=== PATIENT | female | born 1945 | race Caucasian/White ===

== ENCOUNTER 2016-03-06 10:11 | Emergency (ER) | payer MEDICARE, OTHER ==
--- NOTE | 2016-03-06 11:30 | Emergency Department Record ---
History of Present Illness - General Chief Complaint: Cough Stated Complaint: COUGH/SOB/LIGHT HEADED Time Seen by Provider: 03/06/16 11:29 Source: Patient Mode of Arrival: Ambulatory Limitations: No limitations - History of Present Illness Initial Comments: The patient is here due to a one month hx of cough and congestion with intermittent SOB. She denies any CP but has had some chest congestion off and on with the SOB. The patient was started on AMox. by her PCP and then had it changed to Levaquin. She just recently finished a 10 day course of Levaquin 750 mg daily. Due to not feeling better she decided to come to the ER. The patient was in the ER at [facility] 4 days ago and had a chest CT that she reports just showed fluid on the lungs but no blood clot. The patient does have a hx of CAD and has had multiple stents placed in the past but denies any problems with her heart. Complaint: Cough Onset/Timin -: Month(s) - Related Data Home Medications Medication Instructions Recorded Confirmed Last Taken Aspirin [Adult Low Dose Aspirin EC] 81 mg PO DAILY 03/06/16 03/06/16 03/06/16 Clobetasol Propionate/Emoll 1 apply TOP BID 03/06/16 03/06/16 03/06/16 [Clobetasol Emollient 0.05% Crm] Hydrochlorothiazide [Hctz 25Mg] 25 mg PO DAILY 03/06/16 03/06/16 03/06/16 Levothyroxine Sodium [Synthroid] 112 mcg PO DAILY 03/06/16 03/06/16 03/06/16 Nitroglycerin [Nitrostat] 0.4 mg SL ASDIR 03/06/16 03/06/16 Unknown Pantoprazole Sodium [Protonix] 40 mg PO DAILY 03/06/16 03/06/16 03/06/16 Zolpidem Tartrate [Ambien] 5 mg PO QHS PRN 03/06/16 03/06/16 Unknown Previous Rx's Medication Instructions Recorded Doxycycline Monohydrate [Mondoxyne 100 mg PO BID #20 capsule 03/06/16 Nl] Prednisone [Prednisone 20Mg] 40 mg PO DAILY #10 tab 03/06/16 Allergies Allergy/AdvReac Type Severity Reaction Status Date / Time cefaclor [From [facility]] Allergy HIVES Verified 03/06/16 11:04 Travel Screening - Travel/Exposure Within Last 30 Days Have you traveled within the last 30 days?: No - Travel/Exposure Within Last Year Have you traveled outside the [place] in the last year?: No - Additonal Travel Details Have you been exposed to anyone with a communicable illness?: No - Travel Symptoms Symptom Screening: None Review of Systems Constitutional: Reports: Malaise. Denies: Chills, Fever Eyes: Denies: Eye discharge ENT: Reports: Congestion Respiratory: Reports: Cough, Dyspnea Cardiovascular: Reports: Dyspnea on exertion. Denies: Arrhythmia, Chest pain Endocrine: Reports: Fatigue Gastrointestinal: Denies: Diarrhea, Vomiting Genitourinary: Denies: Dysuria Musculoskeletal: Denies: Back pain Skin: Denies: Bruising Past Medical History - SOCIAL HISTORY Smoking Status: Former smoker Alcohol Use: Occassional Drug Use: None - RESPIRATORY Hx Respiratory Disorders: No - CARDIOVASCULAR Hx Cardio Disorders: Yes Hx Hypertension: Yes - NEURO Hx Neuro Disorders: No - GI Hx GI Disorders: Yes Hx Reflux: Yes - Hx Genitourinary Disorders: No - ENDOCRINE Hx Endocrine Disorders: Yes Hx Thyroid Disease: Yes - MUSCULOSKELETAL Hx Musculoskeletal Disorders: Yes Hx Arthritis: Yes - PSYCH Hx Psych Problems: No - HEMATOLOGY/ONCOLOGY Hx Hematology/Oncology Disorders: No Family Medical History Any Significant Family History?: Yes Hx Cancer: Brother/Sister Physical Exam - General General Appearance: Alert, Oriented x3, Cooperative, No acute distress - Head Head exam: Atraumatic, Normocephalic, Normal inspection - Eye Eye exam: Normal appearance, PERRL - ENT Throat exam: Normal inspection. negative: Tonsillar erythema, Tonsillar exudate - Neck Neck exam: Normal inspection, Full ROM. negative: Lymphadenopathy, Meningismus , Tenderness - Respiratory Respiratory exam: Rales (about 1/2 up bilaterally.), Rhonchi. negative: Normal lung sounds bilaterally, Decreased breath sounds - Cardiovascular Cardiovascular Exam: Regular rate, Normal rhythm, Normal heart sounds - GI/Abdominal GI/Abdominal exam: Soft, Normal bowel sounds. negative: Tenderness - Extremities Extremities exam: Normal inspection, Full ROM, Normal capillary refill. negative: Tenderness - Back Back exam: Reports: Normal inspection - Neurological Neurological exam: Alert, Normal gait. negative: Abnormal gait, Motor sensory deficit Course Vital Signs 03/06/16 11:10 Temperature 99.6 F Pulse Rate 77 Respiratory 20 Rate Blood Pressure 127/67 Pulse Ox 93 L - Reevaluation(s) Reevaluation #1: The patient denies any new symptoms. I did discuss the lab and xray results with her and the need for a chest CT. Since the patient had one 4 days ago she is refusing another CT. She understands that we cannot be held liable for NOT doing the CT due to the fact she is refusing it. I explained to her that by NOT doing it we could be missing a PE, which could lead to a stroke, disability, NH and . The patient understands and accepts the risks. She states the CT done 4 days ago was to look for a clot and she was told there was none. Since we are unable to access that test I do feel we need to re-order the test but she again is refusing. She is instructed to take Prednisone and see her Pulmonary doctor JAZMYNE. 03/06/16 13:48 Medical Decision Making - Data Complexity MDM Data: Labs Ordered and/or Reviewed, X-Ray Ordered and/or Reviewed, EKG Ordered and/or Reviewed - Lab Data Result diagrams: 03/06/16 11:45 03/06/16 11:45 - EKG Data -: EKG Interpreted by Me EKG: No Acute Changes, Normal EKG - Radiology Data Radiology results: Report reviewed (CXR; Increased interstitial markings.) Disposition Disposition: Discharge Disposition: Against Medical Advice Condition: (1) Good Instructions: Dyspnea (ED) Additional Instructions: Please continue your regular medicines and start the Doxy and the Prednisone. Please see your lung specialist and your PCP early next week. Return to the ER for any CP, increased shortness of breath or fever. Prescriptions: Doxycycline Monohydrate [Mondoxyne Nl] 100 mg PO BID #20 capsule Prednisone [Prednisone 20Mg] 40 mg PO DAILY #10 tab Forms: Patient Portal Access Time of Disposition: 13:53
[2016-03-06 11:53] LABS: BASO % 0.6 % (0-6); EOS % 3.3 % (0-6); HEMATOCRIT 43.9 % (35.0-47.0); HEMOGLOBIN 14.7 gm/dl (11.6-16.0); MEAN CELL VOLUME 85.7 fl (81-97); MEAN CORPUSCULAR HEMOGLOBIN 28.7 pg (27-33); MEAN CORPUSCULAR HGB CONC 33.5 g/dl (32-36); MEAN PLATELET VOLUME 8.7 fl (7.4-10.4); MONO % 9.1 % (0-9); PLATELET COUNT 324 K/uL (130-400); RED BLOOD COUNT 5.12 M/uL (3.80-5.40); RED CELL DISTRIBUTION WIDTH 13.7 % (11.5-14.5); WHITE BLOOD COUNT W/O DIFF 10.4 K/uL (4.2-12.2)
[2016-03-06] MEDS: IPRATROPIUM/ALBUTEROL (0.5MG/3MG) NEB INH ONE (11:59)
[2016-03-06 12:05] LABS: ALB/GLOB RATIO 1.4 (1.1-1.8); ALBUMIN 4.1 gm/dL (3.5-5.0); ALKALINE PHOSPHATASE 80 U/L (38-126); ALT/SGPT 32 U/L (9-52); ANION GAP 10.6 (7-16); AST/SGOT 28 U/L (14-36); BILIRUBIN,TOTAL 0.39 mg/dL (0.2-1.3); BLOOD UREA NITROGEN 11 mg/dL (7-17); CARBON DIOXIDE 28.4 mmol/L (22-30); CREATINE PHOSPHOKINASE 89 U/L (30-135); CREATININE 0.7 mg/dL (0.52-1.04); EST GLOMERULAR FILTRATION RATE > 60 ml/min; GLUCOSE,RANDOM 103 mg/dL (70-110)
[2016-03-06 12:07] LABS: INR 0.92; PARTIAL THROMBOPLASTIN TIME 26.8 SECONDS (24.5-39.1); PROTHROMBIN TIME (PATIENT) 10.4 SECONDS (9.5-12.1)
[2016-03-06 12:17] LABS: CKMB 1.1 ug/L (0-6)
[2016-03-06 12:20] LABS: TROPONIN I < 0.012 ng/mL (0.00-0.034)
--- NOTE | 2016-03-11 08:54 | RADIOLOGY REPORT ---
EXAM: CHEST, TWO VIEWS HISTORY: COUGH. TECHNIQUE: Upright PA and lateral views of the chest were obtained. Comparison: None. FINDINGS: The heart is not enlarged. No pulmonary venous hypertension is seen. The thoracic aorta is tortuous and atherosclerotic. No lung consolidation is identified though there does appear to be mild mixed primarily reticular opacities scattered in each lung, the etiology of which is indeterminate. No costophrenic angle blunting or pneumothorax. Post surgical changes in each humerus. IMPRESSION: LOW LUNG VOLUMES. MIXED PRIMARILY RETICULAR OPACITY PROMINENCE IN EACH LUNG IS OF INDETERMINATE ETIOLOGY. THIS MAY JUST RELATE TO CHRONIC INTERSTITIAL CHANGE THOUGH INTERSTITIAL PNEUMONITIS CANNOT BE EXCLUDED. MILDLY TORTUOUS ATHEROSCLEROTIC THORACIC AORTA. JOB NUMBER: [id number] [id number]
== END 2016-03-06 13:40 | disposition left against medical advice (07) ==
LOC: ER 10:11
DX: R06.02 Shortness of breath (principal); R42 Dizziness and giddiness; R05 Cough; I25.10 Atherosclerotic heart disease of native coronary artery without angina pectoris; I10 Essential (primary) hypertension; Z95.5 Presence of coronary angioplasty implant and graft; Z87.891 Personal history of nicotine dependence
CPT/HCPCS: 71020; 80053; 82550; 82553; 83880; 84484; 85025; 85379; 85610; 85730; 93005; 93010; 99284